=== PATIENT | male | born 1985 | race Caucasian/White ===

== ENCOUNTER 2016-11-28 22:43 | Emergency (ER) | payer OTHER ==
--- NOTE | 2016-11-28 22:48 | PDOC ---
History of Present Illness - General Chief Complaint: Pain, Acute Stated Complaint: ABD PAIN W/ N&V Time Seen by Provider: 11/28/16 22:48 History Source: Patient Exam Limitations: No Limitations - History of Present Illness Initial Comments: 11/28/16 22:53 This is a 31-year-old male comes in complaining of nausea and vomiting with intermittent episodes of very brief sharp abdominal pain. The abdominal pain is associated with nausea and vomiting. Patient said he is had multiple episodes throughout the day. Patient denies any pain at this time. Patient denies any diarrhea. Patient denies any recent travel out of the country. Patient is otherwise healthy denies any fevers, urinary complaints, chest pain or any other complaints. PAST MEDICAL HISTORY: no significant history PAST SURGICAL HISTORY: no significant history FAMILY HISTORY: no pertinant history SOCIAL HISTORY: Pt lives with family and is employed. MEDICATIONS: reviewed ALLERGIES: As per nursing notes Review of Systems General: No fevers or chills, no weakness, no weight loss HEENT: No change in vision. No sore throat,. No ear pain CardioVascular: No chest pain or shortness of breath Respiratory:No cough, or wheezing. Gastrointestinal: + nausea, + vomitting, no diarrhea or constipation, No rectal bleeding Genitourinary: No dysuria, hematuria, or frequency Musculoskeletal: No joint or muscle pain or swelling Neurologic: No headache, vertigo, dizziness or loss of consciousness Psychiatric: nor depression Skin: No rashes or easy bruising Endocrine: no increased thirst or abnormal weight change Allergic: no skin or latex allergy All other systems reviewed and normal Exam: General: Well-nourished well-developed individual, no acute distress HEENT: Throat: Normal, tonsils normal, no erythema or exudate Neck: Supple, no meningeal signs, no lymphadenopathy Eyes::Pupils equal reactive and round, extraocular motion intact Chest: Nontender to palpation Cardiac: S1-S2 normal, regular rate and rhythm, no murmurs rubs or gallops Respiratory: Lungs clear to auscultation bilateral Abdomen: Soft, nondistended, normal bowel sounds, nontender to palpation diffusely Extremities: Warm, dry, no cyanosis, clubbing, or edema Skin: No rashes Neuro: Alert and oriented x3, nonfocal exam, grossly intact, normal gait Psych: Normal mood and affect 11/28/16 23:52 Patient feels much better after antiemetics and liter of fluid. Assessment and plan: This is a 31-year-old male who comes in with nausea vomiting and intermittent brief episodes of crampy abdominal pain. Patient had no pain at the time of my evaluation. Patient was afebrile. Patient was given a liter of fluid and labs were sent. The labs were unremarkable for any acute pathology patient had a very mildly elevated white count consistent with viral infection. Patient's potassium was slightly low so was given 40 mEq of by mouth KO. Patient was given a prescription for Zofran and discharged. Past History - Past Medical History Allergies/Adverse Reactions: Allergies Allergy/AdvReac Type Severity Reaction Status Date / Time No Known Allergies Allergy Verified 08/13/13 00:17 Home Medications: Ambulatory Orders No Home Medications 0 dose .ROUTE UTDICT 01/04/13 Ondansetron [Zofran Odt -] 4 mg SL TID #14 od.tablet 11/28/16 - Surgical History Appendectomy: Yes - Immunization History Immunization Up to Date: Yes - Psycho/Social/Smoking Cessation Hx Anxiety: No Suicidal Ideation: No Smoking Status: Yes Smoking History: Never smoked Number of Cigarettes Smoked Daily: 0 Hx Alcohol Use: Yes (social) ED Treatment Course - LABORATORY CBC & Chemistry Diagram: 11/28/16 23:00 11/28/16 23:00 *DC/Admit/Observation/Transfer Diagnosis at time of Disposition: Nausea and vomiting Qualifiers: Vomiting type: unspecified Vomiting Intractability: non-intractable Qualified Code(s): R11.2 - Nausea with vomiting, unspecified - Discharge Dispostion Disposition: HOME Condition at time of disposition: Stable - Patient Instructions Additional Instructions: Clear liquids only for the next 6 hours.. If you feel nauseous or vomit U can take Zofran 1 tablet as often as every 6-8 hours After that if you have had no further vomiting you may have bananas, rice, applesauce, or toast. If no further vomiting for another 8 hours you may have regular food. If you vomit again then nothing to eat or drink for 2 hours. then start back with the clear liquids. Return to the emergency department immediately with ANY new, persistent or worsening symptoms. You MUST call and follow up with your doctor tomorrow if not better. Please make sure your doctor reviews the results of your emergency evaluation. Return to the emergency department immediately with ANY new, persistent or worsening symptoms. Continue any medications as previously prescribed by your physician. You should follow up with your primary doctor as soon as possible regarding today's emergency department visit. . Please make sure your doctor reviews the results of your emergency evaluation. Thank you for coming to the Emergency Department today for your care. It was a pleasure to see you today. Please note that your evaluation is INCOMPLETE until you follow-up with your doctor.
[2016-11-28 22:49] VITALS: BP 141/84; PULSE 92; TEMP 98.6; BMI 27.8
[2016-11-28] MEDS ORDERED: ONDANSETRON 4 MG/2 ML VIAL IVPB ONE (22:51)
[2016-11-28] MEDS ORDERED: SODIUM CHLORIDE 1,000 ML IV ONE (22:51)
[2016-11-28 23:22] LABS: RDW 12.4 % (11.9-15.9)
[2016-11-28 23:24] LABS: ALBUMIN 4.2 g/dl (3.5-5.0); ALK PHOS 61 U/L (32-92); ANION GAP 4 (8-16); BILIRUBIN,TOTAL 1.2 mg/dl (0.2-1.0); CALCIUM 8.9 mg/dl (8.4-10.2); CO2 27 mmol/L (22-28); CREATININE 0.8 mg/dl (0.6-1.3); GLUCOSE,RANDOM 118 mg/dl (74-106); SGOT/AST 17 U/L (10-42); SGPT/ALT 22 U/L (10-40); TOT PROT 7.3 g/dl (6.4-8.3)
[2016-11-28 23:35] LABS: MCH 29.7 pg (25.7-33.7); MCHC 34.2 g/dl (32.0-35.9); WHITE BLOOD COUNT 11.9 K/mm3 (4.0-10.8)
[2016-11-28 23:36] LABS: MEAN PLT VOLUME 10.9 fl (7.5-11.1); PLATELET COUNT 165 K/MM3 (134-434)
[2016-11-28 23:42] LABS: PLATELET ESTIMATE ADEQUATE (NORMAL)
[2016-11-28] MEDS ORDERED: POTASSIUM CHLORIDE TABS 20 MEQ TABLET.ER (FP) PO ONE ×2 (23:51→23:59)
== END 2016-11-29 00:15 | disposition home or self-care (01) ==
LOC: FER 22:43
PROC: 3E033GC Introduction of Other Therapeutic Substance into Peripheral Vein, Percutaneous Approach (ICD-10-PCS; principal; 2016-11-28)
PROC: 3E0337Z Introduction of Electrolytic and Water Balance Substance into Peripheral Vein, Percutaneous Approach (ICD-10-PCS; 2016-11-28)
DX: R11.2 Nausea with vomiting, unspecified (principal)
CPT/HCPCS: 36415; 80053; 83690; 85025; 99282-25

== ENCOUNTER 2017-04-02 11:51 | Inpatient (IN) | payer OTHER ==
[2017-04-02] MEDS ORDERED: ONDANSETRON 4 MG/2 ML VIAL IVPUSH ONE (12:06)
[2017-04-02] MEDS ORDERED: SODIUM CHLORIDE 0.9% 500 ML INFUS.BAG IV ONE (12:06)
[2017-04-02] MEDS ORDERED: morphine CARPU-JECT 4 MG/1 ML DISP.SYRIN IVPUSH ONE ×2 (12:06→13:34)
--- NOTE | 2017-04-02 12:15 | PDOC ---
History of Present Illness - General Chief Complaint: Pain Stated Complaint: R LOWER ABDOMINAL PAIN Time Seen by Provider: 04/02/17 12:05 - History of Present Illness Initial Comments: 04/02/17 12:29 32-year-old male history of appendectomy at 3 year of age presents with sudden onset right-sided abdominal pain since 6 AM this morning. He reports the pain is sharp, 10 out of 10 and associated with nausea and multiple episodes of nonbloody nonbilious emesis. The patient has a history of gallstones. Reports he ate fried chicken last night at midnight. Denies any fevers, chills, chest pain, shortness of breath. Denies any urinary symptoms. Denies any testicular symptoms or penile discharge. Last bowel movement was today, and was normal. Denies weakness or numbness. Past History - Past Medical History Allergies/Adverse Reactions: Allergies Allergy/AdvReac Type Severity Reaction Status Date / Time No Known Allergies Allergy Verified 08/13/13 00:17 Home Medications: Ambulatory Orders No Home Medications 0 dose .ROUTE UTDICT 01/04/13 Ondansetron [Zofran Odt -] 4 mg SL TID #14 od.tablet 11/28/16 - Surgical History Appendectomy: Yes - Immunization History Immunization Up to Date: Yes - Suicide/Smoking/Psychosocial Hx Smoking Status: Yes Smoking History: Never smoked Number of Cigarettes Smoked Daily: 0 Hx Alcohol Use: Yes (social) Review of Systems - Review of Systems Comments:: 04/02/17 12:31 GENERAL/CONSTITUTIONAL: No fever or chills. No weakness. HEAD, EYES, EARS, NOSE AND THROAT: No change in vision. No ear pain or discharge. No sore throat. GASTROINTESTINAL: + nausea, vomiting, no diarrhea or constipation. +abd pain GENITOURINARY: No dysuria, frequency, or change in urination. CARDIOVASCULAR: No chest pain or shortness of breath. RESPIRATORY: No cough, wheezing, or hemoptysis. MUSCULOSKELETAL: No joint or muscle swelling or pain. No neck or back pain. SKIN: No rash NEUROLOGIC: No headache, vertigo, loss of consciousness, or change in strength/ sensation. ENDOCRINE: No increased thirst. No abnormal weight change. HEMATOLOGIC/LYMPHATIC: No anemia, easy bleeding, or history of blood clots. ALLERGIC/IMMUNOLOGIC: No hives or skin allergy. *Physical Exam - Physical Exam Comments: 04/02/17 12:31 GENERAL: Awake, alert, and fully oriented, appears uncomfortable but in no acute distress HEAD: No signs of trauma EYES: PERRLA, EOMI, sclera anicteric, conjunctiva clear ENT: Auricles normal inspection, hearing grossly normal, nares patent, oropharynx clear without exudates. Moist mucosa NECK: Normal ROM, supple, no lymphadenopathy, JVD, or masses LUNGS: Breath sounds equal, clear to auscultation bilaterally. No wheezes, and no crackles HEART: Regular rate and rhythm, normal S1 and S2, no murmurs, rubs or gallops ABDOMEN: Soft, +RUQ ttp with voluntary guarding. No rebound. +murphys sign. No CVAT EXTREMITIES: Normal range of motion, no edema. No clubbing or cyanosis. No cords, erythema, or tenderness NEUROLOGICAL: Normal speech, cranial nerves intact, negative pronator drift, 5/ 5 strength in all 4 extremities, normal sensation to light touch in all 4 extremities, normal cerebellar exam, normal gait, normal reflexes and tone SKIN: Warm, Dry, normal turgor, no rashes or lesions noted. ED Treatment Course - LABORATORY CBC & Chemistry Diagram: 04/02/17 12:05 04/02/17 12:05 Medical Decision Making - Medical Decision Making 04/02/17 12:32 32-year-old male with a history of appendectomy presents with sudden onset right -sided abdominal pain since this morning. Vitals remarkable for hypertension, likely secondary to pain. Exam with positive Olvera sign, right upper quadrant tenderness, and guarding. Differential includes but not limited to acute cholecystitis versus biliary colic versus colitis versus renal colic. Will obtain labs, urinalysis, US and control pain and reassess. 04/02/17 14:35 US with thickened wall, gallstones and + US murphys sign. Pt given Unasyn. Required 2 doses of morphine 4mg and 1 dose of dilaudid 1mg to control pain. Case discussed with Dr. Mederos who will evaluate patient. Discussed case with [facility] who accepts the patient for an inpatient admission under Dr. Calix. Case discussed in detail with admitting provider including history, physical exam and ancillary studies. Admitting physician has assumed care for the patient, will follow all pending diagnostics and will complete the evaluation and treatment. *DC/Admit/Observation/Transfer Diagnosis at time of Disposition: Acute cholecystitis - Discharge Dispostion Condition at time of disposition: Stable Admit: Yes - Referrals - Patient Instructions - Post Discharge Activity - Attestations Physician Attestion: 04/02/17 14:38 I, Dr. Rukhsana Rivera MD, attest that this document has been prepared under my direction and personally reviewed by me in its entirety. I further attest, that it accurately reflects all work, treatment, procedures and medical decision -making performed by me.
[2017-04-02] MEDS ORDERED: morphine SULFATE 4 MG/ML VIAL ONE ×2 (12:41→13:52)
[2017-04-02] MEDS ORDERED: ONDANSETRON 4 MG/2 ML VIAL ONE (12:41)
[2017-04-02 13:22] LABS: ALBUMIN 4.4 g/dl (3.5-5.0); ALK PHOS 66 U/L (32-92); ANION GAP 10 (8-16); BILIRUBIN,TOTAL 0.5 mg/dl (0.2-1.0); BLOOD UREA NITROGEN 12 mg/dl (7-18); CHLORIDE 104 mmol/L (98-107); CO2 24 mmol/L (22-28); CREATININE 0.8 mg/dl (0.6-1.3); GLUCOSE,RANDOM 128 mg/dl (74-106); POTASSIUM 3.7 mmol/L (3.5-5.1); SGOT/AST 21 U/L (10-42); SGPT/ALT 21 U/L (10-40); SODIUM 138 mmol/L (136-145); TOT PROT 7.5 g/dl (6.4-8.3)
[2017-04-02 13:25] LABS: HEMATOCRIT 46.9 % (35.4-49); HEMOGLOBIN 15.3 GM/dl (11.7-16.9); MCH 29.4 pg (25.7-33.7); MCHC 32.7 g/dl (32.0-35.9); MEAN PLT VOLUME 13.7 fl (7.5-11.1); PLATELET COUNT 159 K/MM3 (134-434); RBC 5.21 M/mm3 (4.00-5.60); RDW 12.1 % (11.9-15.9); WHITE BLOOD COUNT 11.5 K/mm3 (4.0-10.8)
[2017-04-02 13:28] LABS: ACTIVATED PTT 31.1 SECONDS (24.0-38.9)
[2017-04-02 13:33] LABS: INR 1.11 (0.82-1.09); PROTHROMBIN TIME (PATIENT) 12.4 SEC (10.2-13.0)
[2017-04-02] MEDS ORDERED: AMPICILLIN NA/SULBACTAM NA 1.5 GM in SODIUM CHLORIDE 100 ML IVPB ONE (13:34)
[2017-04-02] MEDS ORDERED: AMPICILLIN NA/SULBACTAM NA 1.5 GM VIAL ONE (13:52)
[2017-04-02 13:54] LABS: URINE APPEARANCE Clear; URINE BILIRUBIN Negative (NEGATIVE); URINE BLOOD Negative (NEGATIVE); URINE GLUCOSE (UA) Negative (NEGATIVE); URINE KETONE Negative (NEGATIVE); URINE NITRITE Negative (NEGATIVE)
[2017-04-02 13:55] LABS: URINE COLOR YELLOW; URINE PROTEIN 1+ (NEGATIVE)
[2017-04-02] MEDS ORDERED: HYDROmorphone HCL CARPU-JECT 1 MG/1 ML DISP.SYRIN IVPUSH ONE (14:28)
[2017-04-02] MEDS ORDERED: HYDROmorphone HCL CARPU-JECT 1 MG/1 ML DISP.SYRIN ONE (14:31)
[2017-04-02 15:38] VITALS: BMI 28.1
[2017-04-02] MEDS: HYDROmorphone HCL CARPU-JECT 2 MG/1 ML DISP.SYRIN IVPUSH PRN ×2 (16:27→21:21)
[2017-04-02] MEDS: DEXTROSE 5%-0.45% SALINE 1,000 ML IV SCH (16:28)
[2017-04-02 17:55] LABS: PLATELET ESTIMATE ADEQUATE
[2017-04-02 18:30] LABS: EPI CELLS FEW /HPF; URINE BACTERIA FEW /hpf (NEGATIVE); URINE RBC 0-2 /hpf (0-3)
--- NOTE | 2017-04-02 23:16 | HP ---
CHIEF COMPLAINT: right upper abdominal pain w/ N/V PCP: none HISTORY OF PRESENT ILLNESS: This is a 32 year old male with a past medicla history of gallstones who presented to the ED with RUQ pain and N/V after eating fried chicken. he states that he had a similar pain 2 years ago but adjusted his diet and has had no pain since. He said he just couldn't help it, he had to have the fried chicken. He reports feeling much better after receiving pain and nausea medication in the ED. ER course was notable for: (1) US c/w cholecystitis (2) WBC 11.5 Recent Travel: pt denies PAST MEDICAL HISTORY: gallstones PAST SURGICAL HISTORY: appendectomy age 3 Social History: Smoking: pt denies Alcohol: drinks on weekends only, sometimes excessively Drugs: pt denies Family History: mother alive and well father with HTN/DM sister age 25 [place] after seeing a traumatic incident sister with gallbladder removed 4 other siblings alive and well Allergies No Known Allergies Allergy (Verified 08/13/13 00:17) HOME MEDICATIONS: 3 Medication Instructions Recorded No Home Medications 0 dose .ROUTE UTDICT 01/04/13 REVIEW OF SYSTEMS CONSTITUTIONAL: Absent: fever, chills, diaphoresis, generalized weakness, malaise, loss of appetite, weight change HEENT: Absent: rhinorrhea, nasal congestion, throat pain, throat swelling, difficulty swallowing, mouth swelling, ear pain, eye pain, visual changes CARDIOVASCULAR: Absent: chest pain, syncope, palpitations, irregular heart rate, lightheadedness , peripheral edema RESPIRATORY: Absent: cough, shortness of breath, dyspnea with exertion, orthopnea, wheezing, stridor, hemoptysis GASTROINTESTINAL: Present: abdominal pain, nausea, vomiting Absent: abdominal distension, diarrhea, constipation, melena, hematochezia GENITOURINARY: Absent: dysuria, frequency, urgency, hesitancy, hematuria, flank pain, genital pain MUSCULOSKELETAL: Absent: myalgia, arthralgia, joint swelling, back pain, neck pain SKIN: Absent: rash, itching, pallor HEMATOLOGIC/IMMUNOLOGIC: Absent: easy bleeding, easy bruising, lymphadenopathy, frequent infections ENDOCRINE: Absent: unexplained weight gain, unexplained weight loss, heat intolerance, cold intolerance NEUROLOGIC: Absent: headache, focal weakness or paresthesias, dizziness, unsteady gait, seizure, mental status changes, bladder or bowel incontinence PSYCHIATRIC: Absent: anxiety, depression, suicidal or homicidal ideation, hallucinations. PHYSICAL EXAMINATION Vital Signs - 24 hr 3 04/02/17 04/02/17 04/02/17 11:52 14:38 15:24 Temperature 98.2 F 97.5 F L Pulse Rate 58 L 58 L Pulse Rate [ 53 L Left Radial] Respiratory 18 20 16 Rate Blood Pressure 150/101 149/89 Blood Pressure 139/84 [Left Arm] O2 Sat by Pulse 100 100 99 Oximetry (%) 3 04/02/17 04/02/17 04/02/17 15:45 20:06 21:03 Temperature 97.5 F L 98.6 F Pulse Rate 54 L 61 Pulse Rate [ Left Radial] Respiratory 18 18 18 Rate Blood Pressure 149/89 132/75 Blood Pressure [Left Arm] O2 Sat by Pulse 100 100 Oximetry (%) GENERAL: Awake, alert, and fully oriented, in no acute distress. HEAD: Normal with no signs of trauma. EYES: Pupils equal, round and reactive to light, extraocular movements intact, sclera anicteric, conjunctiva clear. No lid lag. EARS, NOSE, THROAT: Ears normal, nares patent, oropharynx clear without exudates. Moist mucous membranes. NECK: Normal range of motion, supple without lymphadenopathy, JVD, or masses. LUNGS: Breath sounds equal, clear to auscultation bilaterally. No wheezes, and no crackles. No accessory muscle use. HEART: Regular rate and rhythm, normal S1 and S2 without murmur, rub or gallop. ABDOMEN: Soft, not distended, normoactive bowel sounds, no guarding, no rebound , no masses. No hepatomegaly or splenomegaly. "Pressure" noted on palpation RUQ, no pain at present. MUSCULOSKELETAL: Normal range of motion at all joints. No bony deformities or tenderness. No CVA tenderness. UPPER EXTREMITIES: 2+ pulses, warm, well-perfused. No cyanosis. No clubbing. No peripheral edema. LOWER EXTREMITIES: 2+ pulses, warm, well-perfused. No calf tenderness. No peripheral edema. NEUROLOGICAL: Cranial nerves II-XII intact. Normal speech. Normal gait. PSYCHIATRIC: Cooperative. Good eye contact. Appropriate mood and affect. SKIN: Warm, dry, normal turgor, no rashes or lesions noted, normal capillary refill. Laboratory Results - last 24 hr 3 04/02/17 04/02/17 04/02/17 12:05 12:05 12:28 WBC 11.5 H RBC 5.21 Hgb 15.3 Hct 46.9 MCV 90.0 MCH 29.4 MCHC 32.7 RDW 12.1 Plt Count 159 MPV 13.7 H D Neutrophils % No Result Required. Neutrophils % (Manual) 85.0 H Band Neutrophils % 1.0 Lymphocytes % No Result Required. Lymphocytes % (Manual) 11.0 Monocytes % (Manual) 2 L Differential Comment Few giants plts Platelet Estimate Adequate Platelet Comment Few large plts PT with INR INR PTT (Actin FS) Sodium 138 Potassium 3.7 Chloride 104 Carbon Dioxide 24 Anion Gap 10 BUN 12 D Creatinine 0.8 Creat Clearance w eGFR > 60 Random Glucose 128 H Calcium 9.0 Total Bilirubin 0.5 D AST 21 D ALT 21 Alkaline Phosphatase 66 Total Protein 7.5 Albumin 4.4 Lipase 20 L Urine Color Urine Appearance Urine pH Ur Specific [place] Urine Protein Urine Glucose (UA) Urine Ketones Urine Blood Urine Nitrite Urine Bilirubin Urine Urobilinogen Ur Leukocyte Esterase Urine RBC Urine WBC Ur Epithelial Cells Urine Bacteria Blood Type Antibody Screen 3 04/02/17 04/02/17 04/02/17 12:29 12:33 13:49 WBC RBC Hgb Hct MCV MCH MCHC RDW Plt Count MPV Neutrophils % Neutrophils % (Manual) Band Neutrophils % Lymphocytes % Lymphocytes % (Manual) Monocytes % (Manual) Differential Comment Platelet Estimate Platelet Comment PT with INR 12.4 INR 1.11 PTT (Actin FS) 31.1 Sodium Potassium Chloride Carbon Dioxide Anion Gap BUN Creatinine Creat Clearance w eGFR Random Glucose Calcium Total Bilirubin AST ALT Alkaline Phosphatase Total Protein Albumin Lipase Urine Color Yellow Urine Appearance Clear Urine pH 7.0 Ur Specific [place] 1.020 Urine Protein 1+ H Urine Glucose (UA) Negative Urine Ketones Negative Urine Blood Negative Urine Nitrite Negative Urine Bilirubin Negative Urine Urobilinogen 2.0 Ur Leukocyte Esterase Negative Urine RBC 0-2 Urine WBC 10-15 Ur Epithelial Cells Few Urine Bacteria Few Blood Type O POSITIVE Antibody Screen Negative ECG Sinus bradycardia vent rate 55, QTC 382 early repolarization Radiology Reports ASSESSMENT/PLAN: 32yM with PMH gallstones presented to the ED with RUQ pain and N/V today after eating fried chicken last night. Cholecystitis - cont unasyn - surgical consult pending, Dr. Parada aware - NPO - Cont IVF DVT PPX - start heparin if not going to the OR FEN - D51/2NS @ 125cc/hr - BMP in am - NPO Dispo: Pt currently requires inpatient management of his emergent condition. Visit type - Emergency Visit Emergency Visit: Yes ED Registration Date: 04/02/17 Care time: The patient presented to the Emergency Department on the above date and was hospitalized for further evaluation of their emergent condition. - New Patient This patient is new to me today: Yes Date on this admission: 04/02/17 - Critical Care Critical Care patient: No
[2017-04-03] MEDS: AMPICILLIN NA/SULBACTAM NA 1.5 GM in SODIUM CHLORIDE 100 ML IVPB SCH ×5 (00:30→21:20)
[2017-04-03 08:49] LABS: ACTIVATED PTT 29.6 SECONDS (24.0-38.9)
[2017-04-03 08:51] LABS: HEMATOCRIT 43.1 % (35.4-49); HEMOGLOBIN 14.6 GM/dl (11.7-16.9); MCH 30.2 pg (25.7-33.7); MCHC 33.9 g/dl (32.0-35.9); MEAN CELL VOLUME 88.9 fl (80-96); MEAN PLT VOLUME 14.1 fl (7.5-11.1); RBC 4.85 M/mm3 (4.00-5.60); RDW 12.2 % (11.9-15.9); WHITE BLOOD COUNT 14.5 K/mm3 (4.0-10.8)
[2017-04-03 08:53] LABS: ALBUMIN 3.9 g/dl (3.5-5.0); ALK PHOS 61 U/L (32-92); ANION GAP 9 (8-16); BILIRUBIN,TOTAL 1.4 mg/dl (0.2-1.0); BLOOD UREA NITROGEN 7 mg/dl (7-18); CALCIUM 8.8 mg/dl (8.4-10.2); CHLORIDE 101 mmol/L (98-107); CO2 25 mmol/L (22-28); CREATININE 0.7 mg/dl (0.6-1.3); MAGNESIUM 1.6 mg/dL (1.8-2.4); PHOSPHOROUS 2.4 mg/dl (2.5-4.6); POTASSIUM 3.6 mmol/L (3.5-5.1); SGOT/AST 23 U/L (10-42); SGPT/ALT 23 U/L (10-40); SODIUM 135 mmol/L (136-145); TOT PROT 6.9 g/dl (6.4-8.3)
[2017-04-03 08:54] LABS: INR 1.21 (0.82-1.09); PROTHROMBIN TIME (PATIENT) 13.5 SEC (10.2-13.0)
--- NOTE | 2017-04-03 09:24 | PN ---
Physical Exam: SUBJECTIVE: Patient seen and examined, reports pain to right upper quadrant, tmax 100.0, oral OBJECTIVE: patient is a 32 y/o male no significant past medical history, patient was admitted from the emergency department for acute cholecytitis. Vital Signs Period Temp Pulse Resp BP Sys/Garcia Pulse Ox Last 24 Hr 97.5 F-100 F 53-91 16-20 127-150/72-101 99-100 GENERAL: The patient is awake, alert, and fully oriented, in no acute distress. HEAD: Normal with no signs of trauma. EYES: PERRL, extraocular movements intact, sclera anicteric, conjunctiva clear. No ptosis. ENT: Ears normal, nares patent, oropharynx clear without exudates, moist mucous membranes. NECK: Trachea midline, full range of motion, supple. LUNGS: Breath sounds equal, clear to auscultation bilaterally, no wheezes, no crackles, no accessory muscle use. HEART: Regular rate and rhythm, S1, S2 without murmur, rub or gallop. ABDOMEN: Soft, + flores's sign, normoactive bowel sounds, no guarding, no rebound, no hepatosplenomegaly, no masses. EXTREMITIES: 2+ pulses, warm, well-perfused, no edema. NEUROLOGICAL: Cranial nerves II through XII grossly intact. Normal speech, gait not observed. PSYCH: Normal mood, normal affect. SKIN: Warm, dry, normal turgor, no rashes or lesions noted Laboratory Results - last 24 hr 04/02/17 04/02/17 04/02/17 12:05 12:05 12:28 WBC 11.5 H RBC 5.21 Hgb 15.3 Hct 46.9 MCV 90.0 MCH 29.4 MCHC 32.7 RDW 12.1 Plt Count 159 MPV 13.7 H D Neutrophils % No Result Required. Neutrophils % (Manual) 85.0 H Band Neutrophils % 1.0 Lymphocytes % No Result Required. Lymphocytes % (Manual) 11.0 Monocytes % (Manual) 2 L Differential Comment Few giants plts Platelet Estimate Adequate Platelet Comment Few large plts PT with INR INR PTT (Actin FS) Sodium 138 Potassium 3.7 Chloride 104 Carbon Dioxide 24 Anion Gap 10 BUN 12 D Creatinine 0.8 Creat Clearance w eGFR > 60 Random Glucose 128 H Calcium 9.0 Phosphorus Magnesium Total Bilirubin 0.5 D AST 21 D ALT 21 Alkaline Phosphatase 66 Total Protein 7.5 Albumin 4.4 Lipase 20 L Urine Color Urine Appearance Urine pH Ur Specific [place] Urine Protein Urine Glucose (UA) Urine Ketones Urine Blood Urine Nitrite Urine Bilirubin Urine Urobilinogen Ur Leukocyte Esterase Urine RBC Urine WBC Ur Epithelial Cells Urine Bacteria Blood Type Antibody Screen 04/02/17 04/02/17 04/02/17 12:29 12:33 13:49 WBC RBC Hgb Hct MCV MCH MCHC RDW Plt Count MPV Neutrophils % Neutrophils % (Manual) Band Neutrophils % Lymphocytes % Lymphocytes % (Manual) Monocytes % (Manual) Differential Comment Platelet Estimate Platelet Comment PT with INR 12.4 INR 1.11 PTT (Actin FS) 31.1 Sodium Potassium Chloride Carbon Dioxide Anion Gap BUN Creatinine Creat Clearance w eGFR Random Glucose Calcium Phosphorus Magnesium Total Bilirubin AST ALT Alkaline Phosphatase Total Protein Albumin Lipase Urine Color Yellow Urine Appearance Clear Urine pH 7.0 Ur Specific [place] 1.020 Urine Protein 1+ H Urine Glucose (UA) Negative Urine Ketones Negative Urine Blood Negative Urine Nitrite Negative Urine Bilirubin Negative Urine Urobilinogen 2.0 Ur Leukocyte Esterase Negative Urine RBC 0-2 Urine WBC 10-15 Ur Epithelial Cells Few Urine Bacteria Few Blood Type O POSITIVE Antibody Screen Negative 04/03/17 04/03/17 04/03/17 07:58 07:58 07:58 WBC 14.5 H RBC 4.85 Hgb 14.6 Hct 43.1 MCV 88.9 MCH 30.2 MCHC 33.9 RDW 12.2 Plt Count MPV 14.1 H Neutrophils % No Result Required. Neutrophils % (Manual) Band Neutrophils % Lymphocytes % No Result Required. Lymphocytes % (Manual) Monocytes % (Manual) Differential Comment Platelet Estimate Platelet Comment PT with INR 13.5 H INR 1.21 PTT (Actin FS) 29.6 Sodium 135 L Potassium 3.6 Chloride 101 Carbon Dioxide 25 Anion Gap 9 BUN 7 D Creatinine 0.7 Creat Clearance w eGFR > 60 Random Glucose Calcium 8.8 Phosphorus 2.4 L Magnesium 1.6 L Total Bilirubin 1.4 H D AST 23 ALT 23 Alkaline Phosphatase 61 Total Protein 6.9 Albumin 3.9 Lipase Urine Color Urine Appearance Urine pH Ur Specific [place] Urine Protein Urine Glucose (UA) Urine Ketones Urine Blood Urine Nitrite Urine Bilirubin Urine Urobilinogen Ur Leukocyte Esterase Urine RBC Urine WBC Ur Epithelial Cells Urine Bacteria Blood Type Antibody Screen Active Medications Generic Name Dose Route Start Last Admin Trade Name Kendra PRN Reason Stop Dose Admin Acetaminophen 650 mg 04/02/17 17:03 Tylenol - PO Q6H PRN MILD PAIN Hydromorphone HCl 1 mg 04/02/17 16:12 04/02/17 21:21 Dilaudid Injection - IVPUSH 1 mg Q4H PRN Administration PAIN LEVEL 7 - 10 Dextrose/Sodium Chloride 1,000 mls @ 125 mls/hr 04/02/17 16:15 04/02/17 16:28 D5-1/2ns - IV 125 mls/hr ASDIR RON Administration Ampicillin Sodium/Sulbactam 100 mls @ 200 mls/hr 04/03/17 00:15 04/03/17 03: 08 Sodium 1.5 gm/ Sodium Chloride IVPB 200 mls/hr Q6H-IV RON Administration Magnesium Sulfate/Dextrose 1 gm in 100 mls @ 100 mls/hr 04/03/17 09:30 Magnesium 1gm/D5w - IVPB 04/03/17 11:29 Q1H RON ASSESSMENT/PLAN: 1) acute Cholecystitis - cont unasyn, monitor wbc and fever curve - surgical consult pending, Dr. Parada aware - NPO and Cont IVF DVT PPX - scd - oob -heparin FEN - D51/2NS @ 125cc/hr - BMP in am - NPO Dispo: Pt currently requires inpatient management of his emergent condition. Visit type - Emergency Visit Emergency Visit: Yes ED Registration Date: 04/02/17 Care time: The patient presented to the Emergency Department on the above date and was hospitalized for further evaluation of their emergent condition. - New Patient This patient is new to me today: Yes Date on this admission: 04/03/17 - Critical Care Critical Care patient: No - Discharge Referral Referred to [facility] Med P.C.: No
[2017-04-03] MEDS ORDERED: PT OWN MED DRAWER 7, Y5N ONE ×3 (09:28→21:12)
[2017-04-03] MEDS: ACETAMINOPHEN 325 MG TABLET (FP) PO PRN ×2 (09:36→17:30)
[2017-04-03] MEDS: MAGNESIUM 1GM/D5W - 1 GM/100 ML IVPB IVPB SCH ×2 (09:37→11:24)
[2017-04-03 12:19] LABS: GLUCOSE,RANDOM 110 mg/dL (74-106)
[2017-04-03 13:35] LABS: PLATELET ESTIMATE ADEQUATE
[2017-04-03 13:39] LABS: PLATELET COUNT 169 K/MM3 (134-434)
[2017-04-03] MEDS: DEXTROSE 5%-0.45% SALINE 1,000 ML IV SCH (15:22)
--- NOTE | 2017-04-03 17:41 | EKG ---
Test Reason : Blood Pressure : / mmHG Vent. Rate : 055 BPM Atrial Rate : 055 BPM P-R Int : 158 ms QRS Dur : 088 ms QT Int : 400 ms P-R-T Axes : 050 002 028 degrees QTc Int : 382 ms SINUS BRADYCARDIA NSST changes, Likely EARLY REPOLARIZATION NO PREVIOUS ECGS AVAILABLE Confirmed by MD STEVE, NANDINI ([id number]) on 04/03/2017 5:40:51 PM Referred By: CHAPIN PATTON Confirmed By:NANDINI WILSON MD
--- NOTE | 2017-04-03 20:33 | CONSULT ---
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 Patient has a history of Gall stone disease and a previous episode of acute illness 2 yrs ago. - History Source History Provided By: Patient - Alcohol/Substance Use Hx Alcohol Use: Yes (social) - Smoking History Smoking history: Never smoked Have you smoked in the past 12 months: No Aproximately how many cigarettes per day: 0 Home Medications - Allergies Allergies/Adverse Reactions: Allergies Allergy/AdvReac Type Severity Reaction Status Date / Time No Known Allergies Allergy Verified 08/13/13 00:17 - Home Medications Home Medications: Ambulatory Orders No Home Medications 0 dose .ROUTE UTDICT 01/04/13 Ondansetron [Zofran Odt -] 4 mg SL TID #14 od.tablet 11/28/16 Physical Exam Vital Signs: Vital Signs Temperature 99.0 F 04/03/17 14:02 Pulse Rate 79 04/03/17 14:02 Respiratory Rate 18 04/03/17 14:02 Blood Pressure 126/62 04/03/17 14:02 O2 Sat by Pulse Oximetry (%) 98 04/03/17 14:02 Labs: CBC, BMP 04/03/17 07:58 04/03/17 07:58 Imaging - Results Ultrasound: Report Reviewed, Image Reviewed Problem List - Problems (1) Acute cholecystitis Code(s): K81.0 - ACUTE CHOLECYSTITIS Assessment/Plan 32 yr old male with acute cholecystitis rising WBC espite npo and antibiotics PLan for OR in am for Lap arlene Discussed options and plan with patient, explained the general outline of the surgery and the associated risks and complications
[2017-04-03] MEDS: FAMOTIDINE 20 MG TABLET PO SCH (21:22)
[2017-04-04] MEDS ORDERED: PT OWN MED DRAWER 7, Y5N ONE ×4 (01:25→17:38)
[2017-04-04] MEDS: AMPICILLIN NA/SULBACTAM NA 1.5 GM in SODIUM CHLORIDE 100 ML IVPB SCH ×4 (02:11→21:20)
--- NOTE | 2017-04-04 08:00 | PN ---
Physical Exam: SUBJECTIVE: Patient seen and examined, reports pressure to the right upper abdomen, denies any tactile fever. pending surgery today. OBJECTIVE:patient is a 32 y/o male no significant past medical history, patient was admitted from the emergency department for acute cholecytitis. Vital Signs Period Temp Pulse Resp BP Sys/Garcia Pulse Ox Last 24 Hr 99.0 F-100.0 F 72-91 18-18 106-127/58-72 97-98 GENERAL: The patient is awake, alert, and fully oriented, in no acute distress. HEAD: Normal with no signs of trauma. EYES: PERRL, extraocular movements intact, sclera anicteric, conjunctiva clear. No ptosis. ENT: Ears normal, nares patent, oropharynx clear without exudates, moist mucous membranes. NECK: Trachea midline, full range of motion, supple. LUNGS: Breath sounds equal, clear to auscultation bilaterally, no wheezes, no crackles, no accessory muscle use. HEART: Regular rate and rhythm, S1, S2 without murmur, rub or gallop. ABDOMEN: Soft, + flores's sign, nondistended, normoactive bowel sounds, no guarding, no rebound, no hepatosplenomegaly, no masses. EXTREMITIES: 2+ pulses, warm, well-perfused, no edema. NEUROLOGICAL: Cranial nerves II through XII grossly intact. Normal speech, gait not observed. PSYCH: Normal mood, normal affect. SKIN: Warm, dry, normal turgor, no rashes or lesions noted Laboratory Results - last 24 hr 04/03/17 04/03/17 04/03/17 07:58 07:58 07:58 WBC 14.5 H RBC 4.85 Hgb 14.6 Hct 43.1 MCV 88.9 MCH 30.2 MCHC 33.9 RDW 12.2 Plt Count 169 MPV 14.1 H Neutrophils % No Result Required. Neutrophils % (Manual) 80.0 Band Neutrophils % 2.0 Lymphocytes % No Result Required. Lymphocytes % (Manual) 12.0 Monocytes % (Manual) 6 D Platelet Estimate Adequate Platelet Comment Few large plts PT with INR 13.5 H INR 1.21 PTT (Actin FS) 29.6 Sodium 135 L Potassium 3.6 Chloride 101 Carbon Dioxide 25 Anion Gap 9 BUN 7 D Creatinine 0.7 Creat Clearance w eGFR > 60 Random Glucose 110 H Calcium 8.8 Phosphorus 2.4 L Magnesium 1.6 L Total Bilirubin 1.4 H D AST 23 ALT 23 Alkaline Phosphatase 61 Total Protein 6.9 Albumin 3.9 Active Medications Generic Name Dose Route Start Last Admin Trade Name Tavonq PRN Reason Stop Dose Admin Acetaminophen 650 mg 04/02/17 17:03 04/03/17 17:30 Tylenol - PO 650 mg Q6H PRN Administration MILD PAIN Famotidine 20 mg 04/03/17 22:00 04/03/17 21:22 Pepcid - PO 20 mg BID RON Administration Hydromorphone HCl 1 mg 04/02/17 16:12 04/02/17 21:21 Dilaudid Injection - IVPUSH 1 mg Q4H PRN Administration PAIN LEVEL 7 - 10 Dextrose/Sodium Chloride 1,000 mls @ 125 mls/hr 04/02/17 16:15 04/03/17 15:22 D5-1/2ns - IV 125 mls/hr ASDIR RON Administration Ampicillin Sodium/Sulbactam 100 mls @ 200 mls/hr 04/03/17 00:15 04/04/17 02: 11 Sodium 1.5 gm/ Sodium Chloride IVPB 200 mls/hr Q6H-IV RON Administration Microbiology 04/02/17 12:12 Urine - Urine Clean Catch Urine Culture - Final NO GROWTH OBTAINED ASSESSMENT/PLAN: 1) acute Cholecystitis - pending OR today for Dr Sushma osman - continue npo-->ivf - leukocytosis resolved, low grade temp noted, continue unasyn DVT PPX - scd - oob -heparin held for OR Today FEN - D51/2NS @ 125cc/hr - cbc and cmp tomm in am - NPO Dispo: Pt currently requires inpatient management of his emergent condition Visit type - Emergency Visit Emergency Visit: Yes ED Registration Date: 04/02/17 Care time: The patient presented to the Emergency Department on the above date and was hospitalized for further evaluation of their emergent condition. - New Patient This patient is new to me today: No - Critical Care Critical Care patient: No - Discharge Referral Referred to [facility] Med P.C.: No
[2017-04-04 08:51] LABS: ALBUMIN 3.7 g/dl (3.5-5.0); ALK PHOS 58 U/L (32-92); ANION GAP 6 (8-16); BILIRUBIN,TOTAL 1.2 mg/dl (0.2-1.0); BLOOD UREA NITROGEN 7 mg/dl (7-18); CALCIUM 8.3 mg/dl (8.4-10.2); CHLORIDE 101 mmol/L (98-107); CO2 26 mmol/L (22-28); CREATININE 0.8 mg/dl (0.6-1.3); GLUCOSE,RANDOM 97 mg/dl (74-106); MAGNESIUM 2.1 mg/dL (1.8-2.4); PHOSPHOROUS 2.6 mg/dl (2.5-4.6); POTASSIUM 3.6 mmol/L (3.5-5.1); SGOT/AST 15 U/L (10-42); SGPT/ALT 19 U/L (10-40); SODIUM 133 mmol/L (136-145); TOT PROT 6.9 g/dl (6.4-8.3)
[2017-04-04] MEDS: ACETAMINOPHEN 325 MG TABLET (FP) PO PRN (09:45)
[2017-04-04] MEDS: FAMOTIDINE 20 MG TABLET PO SCH ×2 (09:45→21:20)
[2017-04-04 09:52] LABS: BASO % 0.7 % (0-2.0); EOS % 1.7 % (0-4.5); HEMATOCRIT 45.5 % (35.4-49); LYMPH % 15.1 % (8-40); MCH 29.6 pg (25.7-33.7); MCHC 33.1 g/dl (32.0-35.9); MEAN CELL VOLUME 89.6 fl (80-96); MEAN PLT VOLUME 12.9 fl (7.5-11.1); NEUT % 72.5 % (42.8-82.8); RBC 5.07 M/mm3 (4.00-5.60); RDW 12.3 % (11.9-15.9)
[2017-04-04 12:32] LABS: PLATELET COUNT 137 K/MM3 (134-434)
[2017-04-04] MEDS ORDERED: BUPIVACAINE HCL/PF 2.5 MG/ML - 30 ML VIAL IJ ONE (13:17)
[2017-04-04] MEDS ORDERED: fentaNYL CITRATE 250 MCG/5 ML VIAL ONE (13:50)
[2017-04-04] MEDS ORDERED: PROPOFOL 20 ML ONE (13:50)
[2017-04-04] MEDS ORDERED: ROCURONIUM BROMIDE 50 MG/5 ML VIAL ONE (13:50)
[2017-04-04] MEDS ORDERED: LIDOCAINE HCL 2% 100 MG/5 ML DISP.SYRIN ONE (13:50)
[2017-04-04] MEDS ORDERED: DEXAMETHASONE SOD PHOSPHATE 4 MG/1 ML VIAL ONE (13:50)
[2017-04-04] MEDS ORDERED: MIDAZOLAM HCL 2 MG/2 ML SINGLE DOSE VIAL ONE (13:51)
[2017-04-04] MEDS ORDERED: ceFAZolin SODIUM 1 GM VIAL ONE (14:23)
[2017-04-04] MEDS ORDERED: GLYCOPYRROLATE 0.2 MG/1 ML VIAL ONE (15:26)
[2017-04-04] MEDS ORDERED: NEOSTIGMINE METHYLSULFATE 0.5 MG/ML - 10 ML MDV ONE (15:26)
[2017-04-04] MEDS ORDERED: BUPIVACAINE HCL/PF 0.25% (2.5MG/ML) 10 ML VIAL IJ ONE (15:32)
--- NOTE | 2017-04-04 15:41 | OP ---
Operative Note - Note: Operative Date: 04/04/17 Pre-Operative Diagnosis: acute cholecystitis Operation: lap arlene Post-Operative Diagnosis: Same as Pre-op (intrahepatic gall bladder) Surgeon: Marek Tucker Fnps: Festus Colbert Anesthesia: General Specimens Removed: gall bladder Estimated Blood Loss (mls): 50 Operative Report Dictated: Yes
--- NOTE | 2017-04-04 15:48 | SURG ---
Surgery Trade Embalmer Note Trade Embalmer: Festus Colbert PA-C Date of Service: 04/04/17 Diagnosis: Acute cholecystitis Procedure: Laparoscopic cholecystectomy I was present for the entirety of the operative procedure. For further detail, please refer to operative report. Visit type - Case Type Case Type: ED Admission - Emergency Emergency Visit: Yes ED Registration Date: 04/02/17 Care time: The patient presented to the Emergency Department on the above date and was hospitalized for further evaluation of their emergent condition. - New patient This patient is new to me today: Yes Date on this admission: 04/04/17
[2017-04-04] MEDS ORDERED: ONDANSETRON 4 MG/2 ML VIAL IVPUSH PRN (16:10)
[2017-04-04] MEDS ORDERED: PROMETHAZINE HCL 25 MG/1 ML VIAL IVPUSH PRN (16:10)
[2017-04-04] MEDS ORDERED: LACTATED RINGERS SOLUTION 1,000 ML IV SCH (16:15)
[2017-04-04] MEDS ORDERED: oxyCODONE HCL 5 MG TABLET PO PRN (16:55)
[2017-04-04] MEDS: oxyCODONE HCL 5 MG TABLET PO PRN ×2 (17:42→21:19)
[2017-04-04] MEDS: DEXTROSE 5%-0.45% SALINE 1,000 ML IV SCH (17:44)
[2017-04-04 22:53] VITALS: TEMP 98.6
[2017-04-05] MEDS ORDERED: PT OWN MED DRAWER 7, Y5N ONE ×3 (02:18→12:09)
[2017-04-05] MEDS: AMPICILLIN NA/SULBACTAM NA 1.5 GM in SODIUM CHLORIDE 100 ML IVPB SCH ×2 (02:52→08:23)
[2017-04-05] MEDS: oxyCODONE HCL 5 MG TABLET PO PRN ×2 (03:01→12:12)
[2017-04-05 07:16] VITALS: BP 116/64; PULSE 71
[2017-04-05 07:43] LABS: WHITE BLOOD COUNT 12.3 K/mm3 (4.0-10.8)
[2017-04-05 07:46] LABS: EOS % 0.6 % (0-4.5); HEMATOCRIT 40.9 % (35.4-49); HEMOGLOBIN 13.9 GM/dl (11.7-16.9); LYMPH % 13.2 % (8-40); MCH 30.2 pg (25.7-33.7); MCHC 33.9 g/dl (32.0-35.9); MEAN PLT VOLUME 12.3 fl (7.5-11.1); MONO % 8.4 % (3.8-10.2); NEUT % 76.8 % (42.8-82.8); PLATELET COUNT 146 K/MM3 (134-434); RDW 11.8 % (11.9-15.9)
[2017-04-05] MEDS: ACETAMINOPHEN 325 MG TABLET (FP) PO PRN (08:24)
[2017-04-05 08:31] LABS: ALBUMIN 3.3 g/dl (3.5-5.0); ALK PHOS 50 U/L (32-92); ANION GAP 6 (8-16); BILIRUBIN,TOTAL 0.7 mg/dl (0.2-1.0); BLOOD UREA NITROGEN 10 mg/dl (7-18); CALCIUM 8.9 mg/dl (8.4-10.2); CHLORIDE 104 mmol/L (98-107); CO2 24 mmol/L (22-28); CREATININE 0.8 mg/dl (0.6-1.3); GLUCOSE,RANDOM 97 mg/dl (74-106); PHOSPHOROUS 3.7 mg/dl (2.5-4.6); POTASSIUM 3.9 mmol/L (3.5-5.1); SGOT/AST 42 U/L (10-42); SGPT/ALT 50 U/L (10-40); SODIUM 134 mmol/L (136-145); TOT PROT 6.6 g/dl (6.4-8.3)
[2017-04-05] MEDS: FAMOTIDINE 20 MG TABLET PO SCH (10:00)
--- NOTE | 2017-04-05 12:10 | DS ---
Physical Exam: SUBJECTIVE: Patient seen and examined OBJECTIVE: Vital Signs Period Temp Pulse Resp BP Sys/Garcia Pulse Ox Last 24 Hr 98.4 F-98.6 F 63-91 13-20 112-122/62-81 95-99 PHYSICAL EXAM GENERAL: The patient is awake, alert, and fully oriented, in no acute distress. HEAD: Normal with no signs of trauma. EYES: PERRL, extraocular movements intact, sclera anicteric, conjunctiva clear. ENT: Ears normal, nares patent, oropharynx clear without exudates, moist mucous membranes. NECK: Trachea midline, full range of motion, supple. LUNGS: Breath sounds equal, clear to auscultation bilaterally, no wheezes, no crackles, no accessory muscle use. HEART: Regular rate and rhythm, S1, S2 without murmur, rub or gallop. ABDOMEN: Soft, nontender, nondistended, normoactive bowel sounds, no guarding, no rebound, no hepatosplenomegaly, no masses. EXTREMITIES: 2+ pulses, warm, well-perfused, no edema. NEUROLOGICAL: Cranial nerves II through XII grossly intact. Normal speech, gait not observed. PSYCH: Normal mood, normal affect. SKIN: Warm, dry, normal turgor, no rashes or lesions noted. LABS Laboratory Results - last 24 hr 04/04/17 04/05/17 04/05/17 08:00 07:28 07:28 WBC 12.3 H RBC 4.60 Hgb 13.9 Hct 40.9 MCV 89.0 MCH 30.2 MCHC 33.9 RDW 11.8 L Plt Count 137 146 MPV 12.3 H Neutrophils % 76.8 Lymphocytes % 13.2 Monocytes % 8.4 Eosinophils % 0.6 Basophils % 1.0 Sodium 134 L Potassium 3.9 Chloride 104 Carbon Dioxide 24 Anion Gap 6 L BUN 10 D Creatinine 0.8 Creat Clearance w eGFR > 60 Random Glucose 97 Calcium 8.9 Phosphorus 3.7 D Magnesium 2.0 Total Bilirubin 0.7 D AST 42 D ALT 50 H D Alkaline Phosphatase 50 Total Protein 6.6 Albumin 3.3 L HOSPITAL COURSE: Date of Admission:04/02/17 Date of Discharge: 04/05/17 Minutes to complete discharge: 35 Discharge Summary Reason For Visit: CHOLECYSTITIS Condition: Improved - Instructions Diet, Activity, Other Instructions: -Keep the dressing on for 48 hrs. You may shower but do not remove the dressing. -Take pain medication as needed and take stool softeners. -Call the surgeon's office for an appointment to be seen on Friday (contact information enclosed). -Return to the ER for fever (temperature over 100.4), severe pain uncontrolled with medications, vomiting/inability to keep down fluids, or any other concerning symptoms. Referrals: Marek Tucker [Staff Physician] - (Please call the office for an appointment ; the doctor would like to see you on Friday) Disposition: HOME - Home Medications Comprehensive Discharge Medication List: Ambulatory Orders No Home Medications 0 dose .ROUTE UTDICT 01/04/13 Ondansetron [Zofran Odt -] 4 mg SL TID #14 od.tablet 11/28/16 Docusate Sodium [Colace] 100 mg PO TID #30 capsule 04/05/17 Oxycodone HCl/Acetaminophen [Percocet 5-325 mg Tablet] 1 tab PO Q6H PRN #20 tablet MDD 4 tabs 04/05/17
--- NOTE | 2017-04-09 09:38 | PATH ---
Surgical Pathology Report Patient Name: SHANNON GIRARD Med. Rec. #: [id number] /Age/Gender: 1985 (Age: 32) / M Account: [id number] Location: [facility] MED-SURG Taken: 04/04/2017 Received: 04/04/2017 Reported: 04/09/2017 Physicians: Marek Tucker M.D. Specimen(s) Received GALLBLADDER Clinical History Cholecystitis Final Diagnosis GALLBLADDER, CHOLECYSTECTOMY: CHRONIC CHOLECYSTITIS AND CHOLELITHIASIS. Electronically Signed Saul Hutton M.D. Gross Description Received in formalin, labeled "gallbladder," is a 10.5 x 4.0 x 3.3 cm. gallbladder with a 0.2 cm. in length portion of cystic duct attached. The outer surface is cano with a focal defect and varies from smooth to shaggy. The lumen contains brown, tenacious bile as well as multiple brown, irregular to fragmented choleliths ranging from 0.1-1.6 cm in greatest dimension. The mucosa is brown and focally hyperemic. The wall of the gallbladder ranges from 0.3-0.9 cm. in thickness. Finish Inspector sections are submitted in one cassette. 04/07/201704/07/2017
--- NOTE | 2017-04-09 21:14 | OP ---
DATE OF OPERATION: 04/04/2017 PREOPERATIVE DIAGNOSIS: Acute cholecystitis. POSTOPERATIVE DIAGNOSIS: Acute cholecystitis. PROCEDURE: Laparoscopic cholecystectomy. SURGEON: Marek Tucker MD HOTEL MAINTENANCE ENGINEER: GUY Gracia SPECIMEN: Gallbladder. COMPLICATIONS: None. BLEEDING: Minimal. DISPOSITION: Patient tolerated procedure well. This is a 32-year-old male who presents with acute cholecystitis. He was admitted to the hospital, started on IV antibiotics. Diagnosis was confirmed by physical exam as well as diagnostic testing. The patient was taken to the operating room for a laparoscopic cholecystectomy. In the operating room, he was placed in supine position. After induction of general anesthesia, he was prepped and draped in the usual sterile fashion. The operation was begun with a periumbilical incision and a standard Milton approach was used to enter peritoneal cavity. A 12-mm port was introduced here and insufflation to a pressure of 15 mmHg was accomplished. Next, under direct vision, three 5-mm ports were introduced, 1 in the epigastric region and 2 in the right upper quadrant. At this point then, the patient was positioned in the reverse Trendelenburg position. The dissection was then begun with retraction of the gallbladder superiorly and laterally, which was technically very difficult due to the contracted intrahepatic nature of the gallbladder. A decision was made to then begin mobilization of the fundus, which was done using cautery, with a hook dissector to allow liberation of the fundus and dome of the gallbladder. Once this was liberated, then the gallbladder was able to be retracted superiorly, exposing the hilar region. Now, with a 2nd grasper, the gallbladder was retracted superiorly and laterally, exposing the hilar structures. The dissection was begun here using a [place] dissector to slowly dissect the gallbladder off the liver, to slowly dissect the peritoneal lining over the hiatal structures. The cystic duct and artery were then sequentially dissected and exposed carefully. The common bile duct was identified and appropriately protected. The cystic duct/common bile duct junction was identified. The critical view of safety was clearly established, and at this point the cystic duct and artery were then both doubly ligated and divided with Endo Eve. The gallbladder was then dissected off the liver with the use of a hook dissector. Bleeding was controlled with cautery. Due to the extensive oozing from the liver bed because of an intrahepatic gallbladder, a Deuce-Desai drain was then placed in Morison's pouch. The gallbladder was then placed in an EndoCatch bag. It was removed through the umbilical port. The ports were removed under direct vision. The fascia at the umbilical port was closed with 0 Vicryl sutures. The skin was closed with 4-0 Monocryl at all port sites. Dermabond was applied. The patient was returned to the recovery room awake, alert, in stable condition. He tolerated procedure well. Phillip [id number]
== END 2017-04-05 13:54 | disposition home or self-care (01) | DRG 419 ==
LOC: FER 11:51 → FM/S 14:23
PROVIDERS: ADMIT Internal Medicine; ATTEND Registered Nurse Emergency
PROC: 0FT44ZZ Resection of Gallbladder, Percutaneous Endoscopic Approach (ICD-10-PCS; principal; 2017-04-04 13:00)
DX: K81.0 Acute cholecystitis (principal)
CPT/HCPCS: 36415; 71046-TC; 76705-TC; 80053; 81003; 81015; 83690; 83735; 84100; 85025; 85610; 85730; 86850; 86900; 86901; 87086; 93005; 94760; 97116-GP; 97161-GP; 99282-25